=== PATIENT | female | born 1995 | race Caucasian/White ===

== ENCOUNTER → 2016-07-11 | Outpatient (CLI) | payer OTHER ==
[2016-07-11 14:28] LABS: BASO % 0 % (0-3); EOS % 1 % (0-3); HEMATOCRIT 39.7 % (36.0-47.0); HEMOGLOBIN 12.8 g/dL (12.0-15.5); LYMPH # 1.3 x10^3/uL (1.0-4.8); LYMPH % 17 % (24-48); MEAN CORPUSCULAR HEMOGLOBIN 28 pg (25-35); MEAN CORPUSCULAR HGB CONC 32 g/dL (31-37); MEAN CORPUSCULAR VOLUME 87 fL (79-100); MONO % 10 % (0-9); NEUT % 72 % (31-73); PLATELET COUNT 192 x10^3/uL (140-400); RED BLOOD COUNT 4.58 x10^6/uL (3.50-5.40); RED CELL DISTRIBUTION WIDTH 13.4 % (11.5-14.5); WHITE BLOOD COUNT 7.4 x10^3/uL (4.0-11.0)
[2016-07-11 14:51] LABS: CALCIUM 8.6 mg/dL (8.5-10.1); CREATININE 0.8 mg/dL (0.6-1.0); GFR 89.7; POTASSIUM 4.3 mmol/L (3.5-5.1)
== END | disposition home or self-care (01) ==
LOC: LAB 14:00
PROVIDERS: ATTEND Family Medicine
DX: Z01.419 Encounter for gynecological examination (general) (routine) without abnormal findings (principal)
CPT/HCPCS: 36415; 80048; 84443; 85027; 86850

== ENCOUNTER → 2016-08-28 | Outpatient (CLI) | payer OTHER ==
[2016-08-28 16:36] LABS: BASO % 0 % (0-3); EOS % 1 % (0-3); HEMATOCRIT 41.9 % (36.0-47.0); HEMOGLOBIN 13.2 g/dL (12.0-15.5); LYMPH # 1.7 x10^3/uL (1.0-4.8); LYMPH % 33 % (24-48); MEAN CORPUSCULAR HEMOGLOBIN 27 pg (25-35); MEAN CORPUSCULAR HGB CONC 32 g/dL (31-37); MEAN CORPUSCULAR VOLUME 86 fL (79-100); MONO % 11 % (0-9); NEUT % 55 % (31-73); PLATELET COUNT 333 x10^3/uL (140-400); RED BLOOD COUNT 4.89 x10^6/uL (3.50-5.40); RED CELL DISTRIBUTION WIDTH 13.7 % (11.5-14.5); WHITE BLOOD COUNT 5.1 x10^3/uL (4.0-11.0)
[2016-08-29 06:18] LABS: HEP B SURFACE ABDY Reactive (.)
== END | disposition home or self-care (01) ==
LOC: LAB 14:05
PROVIDERS: ATTEND Family Medicine
DX: Z32.01 Encounter for pregnancy test, result positive (principal)
CPT/HCPCS: 36415; 85027; 86593; 86703; 86706; 86762; 86850; 86900; 86901; 87086; 87491; 87591

== ENCOUNTER 2016-09-04 04:19 | Emergency (ER) | payer OTHER ==
[~2016-09-04] VITALS: Ht 167.6 cm; Wt 69.4 kg
[2016-09-04 04:46] LABS: BILIRUBIN,URINE NEGATIVE (NEG); GLUCOSE,URINE NEGATIVE (NEG); NITRITE,URINE NEGATIVE (NEG); PH,URINE 5.5; PROTEIN,URINE 30 mg/dL (NEG-TRACE); UROBILINOGEN,URINE 0.2 mg/dL (0.2 mg/dL)
[2016-09-04 04:51] LABS: BACTERIA,URINE MODERATE /HPF (0-FEW); RBC,URINE TNTC /HPF (0-2); SQUAMOUS EPITHELIAL CELL,UR FEW /LPF
--- NOTE | 2016-09-04 04:54 | PHYS DOC ---
Past Medical History Past Medical History: No Pertinent History Past Surgical History: No Surgical History Alcohol Use: None Drug Use: None Adult General Chief Complaint Chief Complaint: VAGINAL BLEEDING [facility] This is a 20-year-old female at an estimated 7 weeks gestation by LMP who states she is having some mild vaginal spotting earlier today and has developed worsening vaginal bleeding just prior to arrival. Se denies any significant abdominal pain. She states this is her first and she is following with a signwriter but has not yet had an ultrasound. Patient does take vitamins. She states she is otherwise healthy and not taking any medications. She denies any chest pain or shortness of breath. She denies any dizziness or lightheadedness. She denies any nausea or vomiting. She denies any fever or chills. She denies any hematuria or dysuria Review of Systems Review of Systems Constitutional: Denies fever or chills [] Eyes: Denies change in visual acuity, redness, or eye pain [] HENT: Denies nasal congestion or sore throat [] Respiratory: Denies cough or shortness of breath [] Cardiovascular: No additional information not addressed in HPI [] GI: Denies abdominal pain, nausea, vomiting, bloody stools or diarrhea [] : Denies dysuria or hematuria [] Musculoskeletal: Denies back pain or joint pain [] Integument: Denies rash or skin lesions [] Neurologic: Denies headache, focal weakness or sensory changes [] Endocrine: Denies polyuria or polydipsia [] Allergies Allergies Allergies Coded Allergies Type Severity Reaction Last Updated Verified No Known Drug Allergies 09/04/16 No Physical Exam Physical Exam Constitutional: Well developed, well nourished, no acute distress, non-toxic appearance. [] HENT: Normocephalic, atraumatic, bilateral external ears normal, oropharynx moist, no oral exudates, nose normal. [] Eyes: PERRLA, EOMI, conjunctiva normal, no discharge. [] Neck: Normal range of motion, no tenderness, supple, no stridor. [] Cardiovascular:Heart rate regular rhythm, no murmur [] Lungs & Thorax: Bilateral breath sounds clear to auscultation [] Abdomen: Bowel sounds normal, soft, no tenderness, no masses, no pulsatile masses. [] Pelvic exam: Closed cervical os with a scant amount of vaginal blood seen which is consistent with a threatened miscarriage. Skin: Warm, dry, no erythema, no rash. [] Back: No tenderness, no CVA tenderness. [] Extremities: No tenderness, no cyanosis, no clubbing, ROM intact, no edema. [] Neurologic: Alert and oriented X 3, normal motor function, normal sensory function, no focal deficits noted. [] Psychologic: Affect normal, judgement normal, mood normal. [] Current Patient Data Vital Signs Vital Signs Date Time Temp Pulse Resp B/P Pulse Ox O2 Delivery O2 Flow Rate FiO2 09/04/16 05:30 84 133/61 100 Room Air 09/04/16 04:31 98.4 18 98.4 Lab Values Laboratory Tests Test 09/04/16 04:23 09/04/16 04:50 Urine Collection Type Unknown Urine Color Sandra Urine Clarity Cloudy Urine pH 5.5 Urine Specific [place] 1.015 Urine Protein 30mg/dL (NEG-TRACE) Urine Glucose (UA) Negativemg/dL (NEG) Urine Ketones (Stick) Negativemg/dL (NEG) Urine Blood Large (NEG) Urine Nitrite Negative (NEG) Urine Bilirubin Negative (NEG) Urine Urobilinogen Dipstick 0.2mg/dL (0.2 mg/dL) Urine Leukocyte Esterase Small (NEG) Urine RBC Tntc/HPF (0-2) Urine WBC 5-10/HPF (0-4) Urine Squamous Epithelial Cells Few/LPF Urine Bacteria Moderate/HPF (0-FEW) Urine Mucus Slight/LPF White Blood Count 7.1x10^3/uL (4.0-11.0) Red Blood Count 4.58x10^6/uL (3.50-5.40) Hemoglobin 12.4g/dL (12.0-15.5) Hematocrit 39.1% (36.0-47.0) Mean Corpuscular Volume 85fL (79-100) Mean Corpuscular Hemoglobin 27pg (25-35) Mean Corpuscular Hemoglobin Concent 32g/dL (31-37) Red Cell Distribution Width 14.3% (11.5-14.5) Platelet Count 252x10^3/uL (140-400) Neutrophils (%) (Auto) 52% (31-73) Lymphocytes (%) (Auto) 35% (24-48) Monocytes (%) (Auto) 13% (0-9) H Eosinophils (%) (Auto) 1% (0-3) Basophils (%) (Auto) 1% (0-3) Neutrophils # (Auto) 3.7x10^3uL (1.8-7.7) Lymphocytes # (Auto) 2.5x10^3/uL (1.0-4.8) Monocytes # (Auto) 0.9x10^3/uL (0.0-1.1) Eosinophils # (Auto) 0.1x10^3/uL (0.0-0.7) Basophils # (Auto) 0.0x10^3/uL (0.0-0.2) Maternal Serum HCG Beta Subunit 548mIU/mL (0-6) H Laboratory Tests 09/04/16 04:50 EKG EKG [] Radiology/Procedures Radiology/Procedures Transvaginal OB ultrasound demonstrates the following: There is a fluid structure in the lower uterine segment which could be a gestational sac but there is no pole or yolk sac noted to be definitive at this time. Follow-up will be necessary. There is endometrial thickening in the uterus. There is no free fluid in the pelvis. Cystic structure in the uterus measures 6 millimeters which if it is a gestational sac would correspond to 5 weeks 2 days gestational age. Right ovary is normal measuring 3.5 x 1.3 by 1.2 centimeters. Left ovary was normal in size. Course & Med Decision Making Course & Med Decision Making Pertinent Labs and Imaging studies reviewed. (See chart for details) This 20-year-old female with ongoing vaginal bleeding at approximately 7 weeks gestation by last menstrual period will have full laboratory workup and a pelvic exam. Transvaginal ultrasound will also be obtained. Her bloodwork is essentially unrevealing other than a blood type of O negative. Rhogam will be administered. Her transvaginal OB ultrasound demonstrates a likely intrauterine gestational sac but no yolk sac or pole noted with a potential gestational age of 5 weeks 2 days. I counseled the patient length that she is to be seen by OB in the next 2 days to have her reassessed to definitively rule out ectopic and to have her blood work redrawn. Patient is very agreeable to this plan and will follow up with her OB in the next 48 hours. She was discharged without incident. Her pelvic family revealed a closed cervical os which is consistent with a threatened miscarriage and a scant amount of vaginal blood in the vault. Dragon Disclaimer Dragon Disclaimer This electronic medical record was generated, in whole or in part, using a voice recognition dictation system. Departure Departure Impression: Primary Impression: Vaginal bleeding Additional Impression: Threatened Disposition: HOME, SELF-CARE Admitting Physician: Other Condition: STABLE Referrals: NABIL ELENA MD (PCP) Patient Instructions: Threatened Miscarriage, [id number] Additional Instructions: Please follow up with your OB doctor in the next 48 hours for your and to have your bloodwork rechecked. Return to the ER if you develop any worsening bleeding, pain, or any other symptoms. Problem Qualifiers MAGGIE CRUZ DO Sep 04, 2016 04:54
[2016-09-04 05:02] LABS: BASO % 1 % (0-3); EOS % 1 % (0-3); HEMATOCRIT 39.1 % (36.0-47.0); HEMOGLOBIN 12.4 g/dL (12.0-15.5); LYMPH # 2.5 x10^3/uL (1.0-4.8); LYMPH % 35 % (24-48); MEAN CORPUSCULAR HEMOGLOBIN 27 pg (25-35); MEAN CORPUSCULAR HGB CONC 32 g/dL (31-37); MEAN CORPUSCULAR VOLUME 85 fL (79-100); MONO % 13 % (0-9); NEUT % 52 % (31-73); PLATELET COUNT 252 x10^3/uL (140-400); RED BLOOD COUNT 4.58 x10^6/uL (3.50-5.40); RED CELL DISTRIBUTION WIDTH 14.3 % (11.5-14.5); WHITE BLOOD COUNT 7.1 x10^3/uL (4.0-11.0)
--- NOTE | 2016-09-04 05:54 | RAD ---
PROCEDURE Obstetrical ultrasound less than 14 weeks transvaginal study HISTORY vag bleeding , still not able to scan paper work in. no hcg quant @ this time,
tech impression: bilat ov flow seen, small hypoechoic structure in endo ? early gs 5W 1D, no ys or fht seen @ this time, thicken endo TECHNIQUE Transvaginal imaging was obtained. COMPARISON None FINDINGS There is a fluid structure in the lower uterine segment which could be a gestational sac but there is no pole or yolk sac noted to be definitive at this time. Follow-up will be necessary. There is endometrial thickening in the uterus. There is no free fluid in the pelvis. Cystic structure in the uterus measures 6 millimeters which if it is a gestational sac would correspond to 5 weeks 2 days gestational age. Right ovary is normal measuring 3.5 x 1.3 by 1.2 centimeters. Left ovary was normal in size. IMPRESSION 1. Possible gestation in the uterus but no yolk sac or pole noted potentially 5 weeks 2 days gestational age, follow-up would be necessary to determine viability. 2. Normal ovaries. Electronically signed by: Lopez Estrada MD (Sep 04, 2016 05:52:16)
[2016-09-04 06:28] VITALS: BP 122/61
== END 2016-09-04 06:33 | disposition home or self-care (01) ==
LOC: ER 04:19
DX: O20.0 Threatened abortion (principal); Z3A.01 Less than 8 weeks gestation of pregnancy
CPT/HCPCS: 36415; 76817; 81001; 84702; 85027; 86850; 86900; 86901; 87086; 99285; J2791

== ENCOUNTER → 2016-09-06 | Outpatient (CLI) | payer OTHER ==
[2016-09-04 06:28] VITALS: BP 122/61
== END | disposition home or self-care (01) ==
LOC: LAB 09:31
PROVIDERS: ATTEND Nurse Practitioner Women's Health
DX: Z34.01 Encounter for supervision of normal first pregnancy, first trimester (principal); Z3A.01 Less than 8 weeks gestation of pregnancy
CPT/HCPCS: 36415; 84702

== ENCOUNTER → 2016-09-13 | Outpatient (CLI) | payer OTHER ==
[2016-09-04 06:28] VITALS: BP 122/61
== END | disposition home or self-care (01) ==
LOC: LAB 07:47
PROVIDERS: ATTEND Nurse Practitioner Women's Health
DX: O03.9 Complete or unspecified spontaneous abortion without complication (principal)
CPT/HCPCS: 36415; 84702

== ENCOUNTER 2017-02-03 10:03 | Emergency (ER) | payer OTHER ==
[2017-02-03 10:07] VITALS: BP 127/64
[2017-02-03 10:26] LABS: BILIRUBIN,URINE NEGATIVE (NEG); GLUCOSE,URINE NEGATIVE (NEG); NITRITE,URINE NEGATIVE (NEG); PH,URINE 6.5; PROTEIN,URINE NEGATIVE (NEG-TRACE); UROBILINOGEN,URINE 0.2 mg/dL (0.2 mg/dL)
[2017-02-03 10:45] LABS: BACTERIA,URINE MODERATE /HPF (0-FEW); WBC,URINE TNTC /HPF (0-4)
[2017-02-03] MEDS ORDERED: NITR100C62 PO (10:53)
--- NOTE | 2017-02-03 10:54 | PHYS DOC ---
Past Medical History Past Medical History: No Pertinent History Past Surgical History: No Surgical History Alcohol Use: None Drug Use: None Adult General Chief Complaint Chief Complaint: PAIN ON URINATION HPI HPI Patient is a 21 year old female presents to the emergency department stating that she's had a 3-4 day history of urinary burning and frequency. Patient states that she has not had any fever, chills or any nausea vomiting. She states that she's had some white vaginal discharge but denies any odor denies any concerns for sexual transmitted infections. Patient does not feel she needs any vaginal exam at this time. Review of Systems Review of Systems Constitutional: Denies fever or chills [] Eyes: Denies change in visual acuity, redness, or eye pain [] HENT: Denies nasal congestion or sore throat [] Respiratory: Denies cough or shortness of breath [] Cardiovascular: No additional information not addressed in HPI [] GI: Denies abdominal pain, nausea, vomiting, bloody stools or diarrhea [] : dysuria denies hematuria [] Musculoskeletal: Denies back pain or joint pain [] Integument: Denies rash or skin lesions [] Neurologic: Denies headache, focal weakness or sensory changes [] Endocrine: Denies polyuria or polydipsia [] Allergies Allergies Allergies Coded Allergies Type Severity Reaction Last Updated Verified No Known Drug Allergies 09/04/16 No Physical Exam Physical Exam Constitutional: Well developed, well nourished, no acute distress, non-toxic appearance. [] HENT: Normocephalic, atraumatic, bilateral external ears normal, oropharynx moist, no oral exudates, nose normal. [] Eyes: PERRLA, EOMI, conjunctiva normal, no discharge. [] Neck: Normal range of motion, no tenderness, supple, no stridor. [] Cardiovascular:Heart rate regular rhythm, no murmur [] Lungs & Thorax: Bilateral breath sounds clear to auscultation [] Skin: Warm, dry, no erythema, no rash. [] Back: No tenderness, no CVA tenderness. [] Extremities: No tenderness, no cyanosis, no clubbing, ROM intact, no edema. [] Neurologic: Alert and oriented X 3, normal motor function, normal sensory function, no focal deficits noted. [] Psychologic: Affect normal, judgement normal, mood normal. [] Current Patient Data Vital Signs Vital Signs Date Time Temp Pulse Resp B/P (MAP) Pulse Ox O2 Delivery O2 Flow Rate FiO2 02/03/17 10:07 98.2 86 18 100 Room Air 98.2 Lab Values Laboratory Tests Test 02/03/17 09:31 02/03/17 10:16 POC Urine HCG, Qualitative Hcg negative (Negative) Urine Collection Type Void Urine Color Yellow Urine Clarity Cloudy Urine pH 6.5 Urine Specific [place] 1.020 Urine Protein Negative mg/dL (NEG-TRACE) Urine Glucose (UA) Negative mg/dL (NEG) Urine Ketones (Stick) Negative mg/dL (NEG) Urine Blood Moderate (NEG) Urine Nitrite Negative (NEG) Urine Bilirubin Negative (NEG) Urine Urobilinogen Dipstick 0.2 mg/dL (0.2 mg/dL) Urine Leukocyte Esterase Large (NEG) Urine RBC 11-20 /HPF (0-2) Urine WBC Tntc /HPF (0-4) Urine Bacteria Moderate /HPF (0-FEW) EKG EKG [] Radiology/Procedures Radiology/Procedures [] Course & Med Decision Making Course & Med Decision Making Pertinent Labs and Imaging studies reviewed. (See chart for details) Patient's test was negative. Patient was noted to have large leukocyte esterase as well as moderate amount of bacteria. No nitrates noted. Patient will be placed on Macrobid at discharge. She'll be recommended to drink plenty fluids such as water, and cranberry juice. Patient will be recommended to avoid cranberry juice cocktail, carbonate beverages, caffeine, alcohol, citrus fruits disease are considered irritants to the bladder. Patient will be discharged home in stable condition signs symptoms to return back to emergency department as been provided. Patient agrees with discharge instructions treatment regimens and follow-up recommendations. [] Dragon Disclaimer Dragon Disclaimer This electronic medical record was generated, in whole or in part, using a voice recognition dictation system. Departure Departure Impression: Primary Impression: Urinary tract infection Disposition: HOME, SELF-CARE Condition: STABLE Referrals: UNKNOWN PCP NAME (PCP) Patient Instructions: Urinary Tract Infection, [id number] Additional Instructions: Your urine was positive for urinary tract infection. Activity as tolerated. Drink plenty of fluids such as water and cranberry juice. Avoid cranberry juice cocktail, carbonate beverages, citrus fruits, alcohol as these are considered irritants to the bladder. Medication as prescribed. Follow-up with the primary care physician in the next 7-10 days to make sure you cleared the infection. Return back to emergency prior signs symptoms of become worse. Scripts Nitrofurantoin Monohyd/M-Cryst (MACROBID 100 MG CAPSULE) 100 Mg Capsule 1 CAP PO BID, #14 CAP Prov: CHINO WARNER APRN 02/03/17 CHINO WARNER APRN Feb 03, 2017 10:54
== END 2017-02-03 10:57 | disposition home or self-care (01) ==
LOC: ER 10:03
DX: N39.0 Urinary tract infection, site not specified (principal); N89.8 Other specified noninflammatory disorders of vagina
CPT/HCPCS: 81001; 81025; 87086; 99284

== ENCOUNTER 2017-03-14 07:48 | Emergency (ER) | payer OTHER ==
[~2017-03-14] VITALS: Ht 167.6 cm; Wt 72.6 kg
[~2017-03-14 07:48] MED LIST: NITR100C62 PO
[2017-03-14 08:03] VITALS: BP 138/74
[2017-03-14 08:10] LABS: BILIRUBIN,URINE NEGATIVE (NEG); GLUCOSE,URINE NEGATIVE (NEG); NITRITE,URINE NEGATIVE (NEG); PROTEIN,URINE NEGATIVE (NEG-TRACE); UROBILINOGEN,URINE 0.2 mg/dL (0.2 mg/dL)
--- NOTE | 2017-03-14 08:20 | PHYS DOC ---
Past Medical History Past Medical History: No Pertinent History Past Surgical History: No Surgical History Alcohol Use: None Drug Use: None Adult General Chief Complaint Chief Complaint: VAGINAL BLEEDING [facility] Patient is a 21 year old female presents to the emergency department with a history of lower abdominal cramping and bleeding. Patient states she had 2 positive test at home, states her LNMP was 8/9. Patient continues to state she had a spontaneous in September 2016. Patient states she has an appointment with DAY CARE ASSISTANT. Review of Systems Review of Systems Constitutional: Denies fever or chills [] Eyes: Denies change in visual acuity, redness, or eye pain [] HENT: Denies nasal congestion or sore throat [] Respiratory: Denies cough or shortness of breath [] Cardiovascular: No additional information not addressed in HPI [] GI: lower abdominal cramping, denies nausea, vomiting, bloody stools or diarrhea [] : Denies dysuria or hematuria [] Musculoskeletal: Denies back pain or joint pain [] Integument: Denies rash or skin lesions [] Neurologic: Denies headache, focal weakness or sensory changes [] Endocrine: Denies polyuria or polydipsia [] Allergies Allergies Allergies Coded Allergies Type Severity Reaction Last Updated Verified No Known Drug Allergies 09/04/16 No Physical Exam Physical Exam Constitutional: Well developed, well nourished, no acute distress, non-toxic appearance. [] HENT: Normocephalic, atraumatic, bilateral external ears normal, oropharynx moist, no oral exudates, nose normal. [] Eyes: PERRLA, EOMI, conjunctiva normal, no discharge. [] Neck: Normal range of motion, no tenderness, supple, no stridor. [] Cardiovascular:Heart rate regular rhythm, no murmur [] Lungs & Thorax: Bilateral breath sounds clear to auscultation [] Abdomen: Bowel sounds hypoactive, soft, no tenderness, no masses, no pulsatile masses. [] Skin: Warm, dry, no erythema, no rash. [] Back: No tenderness Extremities: No tenderness, no cyanosis, no clubbing, ROM intact, no edema. [] Neurologic: Alert and oriented X 3, normal motor function, normal sensory function, no focal deficits noted. [] Psychologic: Affect normal, judgement normal, mood normal. [] Current Patient Data Vital Signs Vital Signs Date Time Temp Pulse Resp B/P (MAP) Pulse Ox O2 Delivery O2 Flow Rate FiO2 03/14/17 08:03 98.4 75 20 138/74 (95) 99 Room Air 98.4 Lab Values Laboratory Tests Test 03/14/17 07:09 03/14/17 08:00 03/14/17 08:25 POC Urine HCG, Qualitative Hcg negative (Negative) Urine Collection Type Unknown Urine Color Yellow Urine Clarity Clear Urine pH 6.0 Urine Specific [place] <=1.005 Urine Protein Negative mg/dL (NEG-TRACE) Urine Glucose (UA) Negative mg/dL (NEG) Urine Ketones (Stick) Negative mg/dL (NEG) Urine Blood Large (NEG) Urine Nitrite Negative (NEG) Urine Bilirubin Negative (NEG) Urine Urobilinogen Dipstick 0.2 mg/dL (0.2 mg/dL) Urine Leukocyte Esterase Negative (NEG) Urine RBC Occ /HPF (0-2) Urine WBC 1-4 /HPF (0-4) Urine Squamous Epithelial Cells Mod /LPF Urine Bacteria Moderate /HPF (0-FEW) Serum Test, Qualitative Negative (NEG) EKG EKG [] Radiology/Procedures Radiology/Procedures [] Course & Med Decision Making Course & Med Decision Making Pertinent Labs and Imaging studies reviewed. (See chart for details) Patient with negative urine and negative blood test. Patient is O- however their is no evidence to warrant the need for rhogam. Patient will be discharged home in stable condition. Recommended Tylenol or Ibuprofen for abdominal cramping. Patient was provided with signs and symptoms to return to the emergency department. Recommended followup with primary care provider as needed. Patient will be discharged home in stable condition. All questions and concerns answered at patients bedside. [] Dragon Disclaimer Dragon Disclaimer This electronic medical record was generated, in whole or in part, using a voice recognition dictation system. Departure Departure Impression: Primary Impression: Normal menstrual period Disposition: HOME, SELF-CARE Condition: STABLE Referrals: UNKNOWN PCP NAME (PCP) Patient Instructions: Dysmenorrhea, [id number] Additional Instructions: Your test here in the emergency department are negative Activity as tolerated Tylenol or Ibuprofen for cramping Followup with primary care or DAY CARE ASSISTANT as needed Return to emergency department as needed for signs and symptoms that become worse. CHINO WARNER BOILER INSPECTOR Mar 14, 2017 08:20
[2017-03-14 08:27] LABS: BACTERIA,URINE MODERATE /HPF (0-FEW); RBC,URINE OCC /HPF (0-2); SQUAMOUS EPITHELIAL CELL,UR MOD /LPF
[2017-03-14 08:51] LABS: NEG OBC SER NEG; POS OBC SER POS
== END 2017-03-14 09:07 | disposition home or self-care (01) ==
LOC: ER 07:48
DX: N92.0 Excessive and frequent menstruation with regular cycle (principal); R10.30 Lower abdominal pain, unspecified
CPT/HCPCS: 81001; 81025; 84703; 87086; 99284

== ENCOUNTER → 2017-10-18 | Outpatient (CLI) | payer OTHER | END | disposition home or self-care (01) | LOC: KCIC US 11:57 | DX: Z34.92 Encounter for supervision of normal pregnancy, unspecified, second trimester (principal); Z3A.19 19 weeks gestation of pregnancy | CPT/HCPCS: 76805 ==